=== PATIENT | male | born 2000 | race Two or more races ===

== ENCOUNTER 2024-03-03 00:26 | Emergency (ER) | payer MEDICAID, SELFPAY ==
[2024-03-03 00:38] VITALS: BP 138/88; PULSE 97; RESP 28; TEMP 36.9; O2SAT 90; BMI 37.3
--- NOTE | 2024-03-03 00:41 | XR_ITS ---
Examination: PA lateral chest 2 views TECHNIQUE: Upright PA lateral chest 2 views Exam date and time: March 03, 2024 12:50 AM Comparison July 07, 2022 INDICATIONS: Onset shortness of breath beginning 4 days ago. FINDINGS: Normal heart size Lungs are clear. The osseous structures are intact IMPRESSION: No active disease
--- NOTE | 2024-03-03 00:42 | PD.EDRME ---
Rapid Medical Screening Exam RME Arrival date/time: 03/03/24 00:26 23-year-old male with a history of asthma presents to the emergency room with a chief complaint of shortness of breath and difficulty breathing x 4 days. I have greeted and performed a focused initial assessment of this patient. A comprehensive ED assessment and evaluation of the patient, analysis of all test results, and completion of the medical decision making process will be conducted by additional ED providers. Chief Complaint: Asthma Vital signs: Vital Signs Temperature 98.4 F 03/03/24 00:38 Pulse Rate 97 03/03/24 00:38 Respiratory Rate 28 H 03/03/24 00:38 Blood Pressure 138/88 H 03/03/24 00:38 Pulse Oximetry (%) 90 L 03/03/24 00:38 Oxygen Delivery Method Room Air 03/03/24 00:38 Vital signs reviewed by provider: Yes
[2024-03-03] MEDS: DEXAMETHASONE SOD PHOS INJ 10 MG/ML VIAL PO (00:57)
[2024-03-03 00:59] VITALS: PULSE 104; RESP 24; O2SAT 99
[2024-03-03] MEDS: ALBUTEROL/IPRATROPIUM (Duoneb) RT SOL 3 ML NEBU INH ×2 (00:59→04:33)
[2024-03-03 01:41] VITALS: PULSE 78; RESP 20; O2SAT 100
[2024-03-03] MEDS: ALBUTEROL/IPRATROPIUM (Duoneb) RT SOL 3 ML NEBU 9 ML INH (01:41)
[2024-03-03 02:00] VITALS: BP 127/62; PULSE 88; RESP 23; TEMP 36.9; O2SAT 99
--- NOTE | 2024-03-03 04:20 | EDNOTE_ITS ---
ED Asthma RME/HPI General Chief Complaint: Asthma Stated Complaint: Asthma Flare up Time Seen by Provider: 03/03/24 01:38 Arrival date/time: 03/03/24 00:26 Limitations: no limitations RME / HPI RME / HPI Narrative: 03/03/24 00:26 23-year-old male with a history of asthma presents to the emergency room with a chief complaint of shortness of breath and difficulty breathing x 4 days. I have greeted and performed a focused initial assessment of this patient. A comprehensive ED assessment and evaluation of the patient, analysis of all test results, and completion of the medical decision making process will be conducted by additional ED providers. ----- Dr. Smith's Main ED Evaluation: 23yo male with a history of asthma presents to the ED for a chief complaint of shortness of breath x 3-4 days. Patient reports associated cough and wheezing, reporting these symptoms usually occur when the weather changes. Denies any other aggravating or alleviating factors. He denies any fever, chills, N/V or any other associated symptoms. Related Data Previous Rx's ?Medication ?Instructions ?Recorded albuterol sulfate 90 mcg/actuation 2 puff inhalation Q 6H PRN 06/13/20 aerosol inhaler (Ventolin HFA) shortness of breath or wheezing #8.5 grams prednisone 10 mg tablets in a dose 10 mg PO QDAY #21 t abs 07/07/22 pack ibuprofen 800 mg tablet 800 mg PO TID PRN pain #30 t abs 01/12/23 loratadine 10 mg tablet 10 mg PO QDAY #30 tabs 12/06 montelukast 10 mg tablet 10 mg PO QDAY #60 tabs 12/06 ipratropium bromide 17 2 puff inhalation Q8H #12.9 grams 03/03/24 mcg/actuation HFA aerosol inhaler prednisone 50 mg tablet 50 mg PO QDAY #6 tabs Allergies Allergy/AdvReac Type Severity Reaction Status Date / Time Penicillins Allergy Severe Hives Verified 12/07/23 09:46 Review of Systems Review of Systems Systems Reviewed: All systems reviewed, normal except as documented ED Exam General Limitations: Present no limitations General appearance: Present alert and in no apparent distress Head Head exam: Present atraumatic Eye Eye exam: Present normal appearance, PERRL and EOMI ENT ENT exam: Present normal exam, normal oropharynx and mucous membranes moist Neck Neck exam: Present normal inspection, full ROM and trachea midline Chest Chest inspection: Present normal inspection and symmetric chest wall rise Respiratory Respiratory exam: Present other (mild diffuse rhonchi, is able to ambulate to the bathroom without shortness of breath); Absent accessory muscle use Cardiovascular Cardiovascular exam: Present regular rate, normal rhythm and normal heart sounds Abdominal Exam Abdominal exam: Present soft and normal bowel sounds Extremities Exam Extremities exam: Present normal inspection and full ROM Back Exam Back exam: Present normal inspection and full ROM Neurological Exam Neurological exam: Present alert, oriented X3 and CN II-XII intact Psychiatric Psychiatric exam: Present normal affect and normal mood Skin Skin exam: Present warm, dry, intact and normal color; Absent diaphoresis Course Course Course Narrative: CXR is ordered for determining the etiology of shortness of breath. Patient states he feels slightly better and is requesting another breathing treatment before being discharged home. Quality Measures none Orders Category Date Time Status Bedside COVID-19 Antigen Test NOW Care 03/03/24 00:41 Completed Bedside Influenza A&B Antigen Test NOW Care 03/03/24 00:41 Completed Engineering Secretary Q4H START 00 Care 03/03/24 01:05 Active XR chest 2V Stat Exams 03/03/24 00:41 Taken Albuterol/Ipratr Rt Omayra [Duoneb Rt Omayra] Med 03/03/24 00:41 Discontinued 3 ml INH X1 ONE Albuterol/Ipratr Rt Omayra [Duoneb Rt Omayra] Med 03/03/24 01:04 Discontinued 9 ml INH X1 ONE Dexamethasone Inj [Decadron Inj] Med 03/03/24 00:41 Discontinued 10 mg PO X1 ONE Sodium Chloride Rt Omayra 0.9% [NS Rt Omayra 0.9%] Med 03/03/24 01:03 Active 3 ml INH PRN PRN Vital Signs Vital signs: Vital Signs Temperature 98.4 F 03/03/24 00:38 Pulse Rate 97 03/03/24 00:38 Respiratory Rate 28 H 03/03/24 00:38 Blood Pressure 138/88 H 03/03/24 00:38 Pulse Oximetry (%) 90 L 03/03/24 00:38 Oxygen Delivery Method Room Air 03/03/24 00:38 Asthma Patient data External records reviewed:: [facility] previous records (Per chart review, patient was seen here on 12/07/23 for asthma exacerbation.) Clinical information provided by:: patient Social determinants that could affect healthcare access:: none Patient has the following chronic illnesses:: asthma How is presenting disease/condition affected by chronic disease/condition?: exacerbated by Evaluation data The following diagnostics were reviewed and interpreted by me:: lab results and radiology exam(s) Lab and/or radiology exams considered but not ordered:: none Interpretation Summary: Bedside COVID and Influenza are negative, according to my interpretation. CXR is negative for any infiltrates, pleural effusions or CHF, according to my interpretation. Medications / Prescriptions Medications or Prescriptions considered but not ordered:: none Medication administrations:: Medication Administration History Sodium Chloride (Sodium Chloride Rt Omayra 0.9% 3 Ml Nebu) 3 ml INH PRN PRN PRN Reason: SOLN Stop: 04/02/24 01:02 Discontinued Medications Albuterol/Ipratropium (Albuterol/Ipratropium (Duoneb) Rt Omayra 3 Ml Nebu) 3 ml INH X1 ONE Stop: 03/03/24 00:42 Last Admin: 03/03/24 00:59 Dose: 3 ml Documented By: JOSEFINA Albuterol/Ipratropium (Albuterol/Ipratropium (Duoneb) Rt Omayra 3 Ml Nebu) 9 ml INH X1 ONE Stop: 03/03/24 01:05 Last Admin: 03/03/24 01:41 Dose: 9 ml Documented By: JOSEFINA Dexamethasone Sodium Phosphate (Dexamethasone Sod Phos Inj 10 Mg/Ml Vial) 10 mg PO X1 ONE Stop: 03/03/24 00:42 Last Admin: 03/03/24 00:57 Dose: 10 mg Documented By: CVL see above Consultations Consultation(s) initiated? (list below): No Diagnosis Differential diagnosis asthma: Pneumonia and other (asthma exacerbation, Influenza, COVID, viral syndrome) Most likely diagnosis given after review of the tests above:: see below Admission Indicated Admission indicated?: not indicated Admission Request Was there a request for admission?: No Disposition Plan Disposition Plan: Discharge Discharge Attestation Discharge Attestation: The patient and all family members were given an opportunity to ask questions and understood the discharge instructions. Discharge instructions specifically effects, indications for sooner follow up or return to the emergency department, and the expected course of current diagnosis. Patient condition: Stable Discharge Plan Plan Patient Disposition: HOME (Self Care) Patient condition on transfer: Stable Prescriptions/Referrals Prescriptions/Med Rec: New prednisone 50 mg tablet 50 mg PO QDAY Qty: 6 0RF ipratropium bromide 17 mcg/actuation HFA aerosol inhaler 2 puff inhalation Q8H Qty: 12.9 1RF No Action albuterol sulfate [Ventolin HFA] 90 mcg/actuation HFA aerosol inhaler 2 puff INH Q6H PRN (Reason: shortness of breath or wheezing) Qty: 8.5 0RF ibuprofen 800 mg tablet 800 mg PO TID PRN (Reason: pain) Qty: 30 0RF loratadine 10 mg tablet 10 mg PO QDAY Qty: 30 0RF montelukast 10 mg tablet 10 mg PO QDAY Qty: 60 0RF prednisone 10 mg tablets,dose pack 10 mg PO QDAY Qty: 21 0RF Referrals: Ajit Rand MD [Primary Care Provider] - In 1 week Problem List Clinical Impression: Asthma exacerbation Patient/Caregiver Discharge Instructions Education Materials: Asthma Action Plan Additional Instructions: 1. Please take the prednisone as prescribed for the next 6 days. Use your inhaler 3-4 times a day as needed for the next 5 to 7 days. 2. You will need to follow-up with your primary care physician in the next 72 hours for follow-up if needed. 3. Return to the emergency department sooner before your appointment if you are feeling more short of breath, you feel like your asthma is out of control, any chest pain, or any other concerns. Print Language: Lao Stand Alone Forms: [employer] Award Info., Patient Portal Info Letter
[2024-03-03 04:34] VITALS: PULSE 86; RESP 18; O2SAT 100
[2024-03-03 05:11] VITALS: BP 147/86; PULSE 72; RESP 14; TEMP 36.5; O2SAT 94
== END 2024-03-03 05:18 | disposition home or self-care (01) ==
PROVIDERS: Emergency Provider Emergency Medicine; PCP Family Medicine
DX: J45.901 Unspecified asthma with (acute) exacerbation (principal)
CPT/HCPCS: 71046; 87400; 87811; 94640; 94644; 99284; A9270; J1100

== ENCOUNTER 2024-04-21 11:03 | Emergency (ER) | payer MEDICAID, SELFPAY ==
[2024-04-21 11:29] VITALS: BP 147/79; PULSE 88; RESP 26; TEMP 36.9; O2SAT 94; BMI 37.7
--- NOTE | 2024-04-21 11:38 | PD.EDADULT ---
ED General RME/HPI General Chief complaint: Shortness of Breath/Dyspnea Stated complaint: UNABLE TO CATCH BREATH, SEVERE ASTHMA Time Seen by Provider: 04/21/24 11:35 Arrival date/time: 04/21/24 11:03 Asthma exacerbation HPI ongoing for the 2-1/2 days the patient has had recurrent asthma attacks over the past several months he states he typically gets them 2-3 times a year. Patient has used his home nebulizer and inhaler for the last 2-1/2 days without significant relief. Patient denies significant shortness of breath or difficulty breathing is awake alert are oriented speaking in full sentences but has audible expiratory wheezing upon interview. Related Data Previous Rx's ?Medication ?Instructions ?Recorded albuterol sulfate 90 mcg/actuation 2 puff inhalation Q6H PRN 06/13/20 aerosol inhaler (Ventolin HFA) shortness of breath or wheezing #8.5 grams prednisone 10 mg tablets in a dose 10 mg PO QDAY #21 tabs 07/07/22 pack ibuprofen 800 mg tablet 800 mg PO TID PRN pain #30 tabs 01/12/23 loratadine 10 mg tablet 10 mg PO QDAY #30 tabs 12/07/23 montelukast 10 mg tablet 10 mg PO QDAY #60 tabs 12/07/23 ipratropium bromide 17 2 puff inhalation Q8H #12.9 grams 03/03/24 mcg/actuation HFA aerosol inhaler prednisone 50 mg tablet 50 mg PO QDAY #6 tabs 03/03/24 prednisone 20 mg tablet See Taper PO BID 3 days #6 tabs 04/21/24 Allergies Allergy/AdvReac Type Severity Reaction Status Date / Time Penicillins Allergy Severe Hives Verified 04/21/24 11:05 Review of Systems Review of Systems Narrative Review of Systems: GEN: No fever, no chills, no weight loss EYES: No discharge, no visual changes, no pain HEENT: No ear pain, no congestion, no sore throat PULM: + shortness of breath, no cough, no congestion, +wheezing CV: No chest pain, no dyspnea on exertion, no palpitations GI: No nausea, no vomiting, no diarrhea, no pain, no constipation : No frequency, no urgency, no dysuria MUSC/SKEL: No joint pain, no back pain SKIN: No rash PSYCH: No hallucinations, no depression HEME/LYMPH: No easy bleeding or bruising tendencies NEURO: No weakness, no headache Course Quality Measures none Orders Category Date Time Status ALBUTEROL RT 0.5ml [Proventil Rt 0.5ml] Med 04/21/24 12:06 Discontinued 2.5 mg INH X1 ONE Albuterol/Ipratr Rt Omayra [Duoneb Rt Omayra] Med 04/21/24 11:37 Discontinued 3 ml INH X1 ONE Sodium Chloride Rt Omayra 0.9% [NS Rt Omayra 0.9%] Med 04/21/24 12:06 Active 3 ml INH PRN PRN dexAMETHasone TAB [Decadron Tab] Med 04/21/24 11:37 Discontinued 10 mg PO X1 ONE Vital Signs Vital signs: Vital Signs Temperature 98.5 F 04/21/24 11:29 Pulse Rate 88 04/21/24 11:29 Respiratory Rate 26 H 04/21/24 11:29 Blood Pressure 147/79 H 04/21/24 11:29 Pulse Oximetry (%) 94 L 04/21/24 11:29 Oxygen Delivery Method Room Air 04/21/24 11:29 [facility] Patient data External records reviewed:: [facility] previous records Clinical information provided by:: patient Social determinants that could affect healthcare access:: none Patient has the following chronic illnesses:: Asthma How is presenting disease/condition affected by chronic disease/condition?: exacerbated by Evaluation data The following diagnostics were reviewed and interpreted by me:: other (specify) (None) Lab and/or radiology exams considered but not ordered:: None asthma Interpretation Summary: Asthma exacerbation After 2 breathing treatments and an observation time the patient has diminished wheezing in the left lobe. The patient is not tachypneic or has no dyspnea at the time of ambulation. Patient be discharged home on steroids to follow-up with his primary care provider and continue to use his nebulizer and albuterol inhaler at home. Medications Medications considered but not ordered:: None Medication administrations:: Medication Administration History Sodium Chloride (Sodium Chloride Rt Omayra 0.9% 3 Ml Nebu) 3 ml INH PRN PRN PRN Reason: SOLN Stop: 05/21/24 12:05 Last Admin: 04/21/24 12:12 Dose: 3 ml Documented By: RG Discontinued Medications Albuterol (Albuterol Rt 2.5 Mg/0.5 Ml Nebu) 2.5 mg INH X1 ONE Stop: 04/21/24 12:07 Last Admin: 04/21/24 12:12 Dose: 2.5 mg Documented By: HAY Albuterol/Ipratropium (Albuterol/Ipratropium (Duoneb) Rt Omayra 3 Ml Nebu) 3 ml INH X1 ONE Stop: 04/21/24 11:38 Last Admin: 04/21/24 11:48 Dose: 3 ml Documented By: HAY Dexamethasone (Dexamethasone 4 Mg Tablet) 10 mg PO X1 ONE Stop: 04/21/24 11:38 Last Admin: 04/21/24 11:43 Dose: 10 mg Documented By: CHANTELLE None Consultations Consultation(s) initiated? (list below): No Diagnosis Differential Diagnosis ED Complaint MDM: Asthma tach anaphylaxis wheezing Most likely diagnosis given after review of the tests above:: Asthma exacerbation Admission Indicated Admission indicated?: not indicated Explain why admission is indicated or not indicated:: Stable for discharge Admission Request Was there a request for admission?: No Disposition Plan Disposition Plan: Discharge Discharge Attestation Discharge Attestation: The patient and all family members were given an opportunity to ask questions and understood the discharge instructions. Discharge instructions specifically effects, indications for sooner follow up or return to the emergency department, and the expected course of current diagnosis. Patient condition: Stable Medical Decision Making Differential Diagnosis Differential Diagnosis: Asthma tach anaphylaxis wheezing Discharge Plan Plan Patient Disposition: HOME (Self Care) Patient condition on transfer: Stable Prescriptions/Referrals Prescriptions/Med Rec: New prednisone 20 mg tablet See Taper PO BID 3 Days Qty: 6 0RF Taper: Prednisone Taper 20 mg DAILY for 2 Days and 0 Hour 10 mg DAILY for 2 Days and 0 Hour 5 mg DAILY for 7 Days and 0 Hour No Action albuterol sulfate [Ventolin HFA] 90 mcg/actuation HFA aerosol inhaler 2 puff INH Q6H PRN (Reason: shortness of breath or wheezing) Qty: 8.5 0RF ibuprofen 800 mg tablet 800 mg PO TID PRN (Reason: pain) Qty: 30 0RF loratadine 10 mg tablet 10 mg PO QDAY Qty: 30 0RF montelukast 10 mg tablet 10 mg PO QDAY Qty: 60 0RF prednisone 10 mg tablets,dose pack 10 mg PO QDAY Qty: 21 0RF prednisone 50 mg tablet 50 mg PO QDAY Qty: 6 0RF ipratropium bromide 17 mcg/actuation HFA aerosol inhaler 2 puff inhalation Q8H Qty: 12.9 1RF Referrals: Ajit Rand MD [Primary Care Provider] - In 1 week Problem List Clinical Impression: Asthma exacerbation Patient/Caregiver Discharge Instructions Other Activity Instructions:: Continue to use your albuterol inhaler and nebulizer if there is worsening of symptoms follow-up with your primary care provider return the emergency room for reevaluation. Education Materials: Asthma Action Plan, Asthma Print Language: Emirati Stand Alone Forms: [employer] Award Info., Patient Portal Info Letter, Work/School Release PA/GEODETIC ENGINEER Supervising Physician PA/GEODETIC ENGINEER Supervising Physician: Arron Cash ENP
[2024-04-21] MEDS: dexAMETHasone 4 MG TABLET 10 MG PO (11:43)
[2024-04-21] MEDS: ALBUTEROL/IPRATROPIUM (Duoneb) RT SOL 3 ML NEBU INH (11:48)
[2024-04-21 11:52] VITALS: PULSE 75; RESP 20; O2SAT 99
[2024-04-21 12:12] VITALS: PULSE 75
[2024-04-21] MEDS: ALBUTEROL RT 2.5 MG/0.5 ML NEBU INH (12:12)
[2024-04-21] MEDS: SODIUM CHLORIDE RT SOL 0.9% 3 ML NEBU INH (12:12)
[2024-04-21 12:13] VITALS: PULSE 71; RESP 20; O2SAT 99
== END 2024-04-21 13:04 | disposition home or self-care (01) ==
PROVIDERS: Emergency Provider Emergency Medicine; PCP Family Medicine
DX: J45.901 Unspecified asthma with (acute) exacerbation (principal)
CPT/HCPCS: 94640; 99283; A9270; J8540